=== PATIENT | male | born 1995 | race African-American/Black ===

== ENCOUNTER 2016-04-20 23:46 | Emergency (ER) | payer OTHER | END 2016-04-21 | disposition left against medical advice (07) | LOC: ER 23:46 | DX: Z53.21 Procedure and treatment not carried out due to patient leaving prior to being seen by health care provider (principal) ==

== ENCOUNTER 2016-06-03 01:02 | Emergency (ER) | payer OTHER | END 2016-06-03 04:56 | disposition left against medical advice (07) | LOC: ER 01:02 | DX: Z53.9 Procedure and treatment not carried out, unspecified reason (principal); R06.02 Shortness of breath ==